=== PATIENT | female | born 1965 | race American Indian/Alaskan Native ===

== ENCOUNTER 2016-08-03 06:44 | Day surgery (SDC) | payer MEDICARE ==
[2016-08-03 07:09] VITALS: BMI 44.4
[2016-08-03] MEDS ORDERED: Lactated Ringer's 500 ML IV ONE ×2 (08:41)
[2016-08-03] MEDS ORDERED: Propofol 10 mg/ml Inj (20 ML) ONE (08:41)
--- NOTE | 2016-08-03 08:41 | CP.SDSHP ---
Same Day Surgery H & P - History Proposed Procedure: Screening colonoscopy Pre-Op Diagnosis: Screening for colorectal cancer - Previous Medical/Surgical History Cardiac: Hypertension Pulmonary: Asthma Endocrine/Metabolic: Thyroid Disease, Diabetes Previous Surgical History: Cholecystectomy - Allergies Allergies: Allergies No Known Allergies Allergy (Unverified 08/18/12 14:58) - Current Medications Current Medications: See reconciliation sheet - Physical Exam General Appearance: WD WN female in NAD Vital Signs: Vital Signs 08/03/16 07:09 Temperature 97.5 F L Pulse Rate 77 Respiratory 19 Rate Blood Pressure 133/86 O2 Sat by Pulse 98 Oximetry Mental Status: Alert & Oriented x3 Neuro: WNL Heart: WNL Lungs: WNL GI: WNL - {Optional Preform as Required} Abdomen: WNL - Impression Impression: Screening for colorectal cancer Pt. Evaluated Today:Candidate for Anesthesia & Procedure: Yes - Date & Time Date: 08/03/16 Time: 08:41 Short Stay Discharge - Short Stay Discharge Admitting Diagnosis/Reason for Visit: SCREENING FOR MAL ERNIE COLON Disposition: HOME/ ROUTINE
[2016-08-03 09:20] VITALS: TEMP 97
[2016-08-03 09:53] VITALS: RESP 19; O2SAT 99
[2016-08-03 09:55] VITALS: BP 132/71; PULSE 67
== END 2016-08-03 09:55 | disposition home or self-care (01) ==
LOC: C.ENDO 06:44
PROVIDERS: ATTEND Internal Medicine Gastroenterology
DX: Z12.11 Encounter for screening for malignant neoplasm of colon (principal); K64.8 Other hemorrhoids
CPT/HCPCS: 45378; 82948; J2001; J2704; J7120